=== PATIENT | male | born 1980 | race Caucasian/White ===

== ENCOUNTER 2025-07-27 07:33 | Inpatient (IN) | payer BC ==
[2025-07-27] VITALS (10 sets, daily range): BP systolic 113–133; BP diastolic 76–88; PULSE 95–102; RESP 18–22; O2SAT 95–100
[~2025-07-27] VITALS: Ht 180.3 cm; Wt 102.2 kg
--- NOTE | 2025-07-27 07:54 | Physician Documentation ---
History of Present Illness ~ Chief Complaint: ALOC Stated Complaint: ALTERED Time Seen by MD: 07:48 HPI History, review of systems, physical examination are limited secondary to patient's clinical condition. This is a 45-year-old gentleman with a known reported medical history per EMS, presents for evaluation of altered mental status starting this morning. Supposedly has ingrown hair in his groin for which he has been treated by [facility] with the Bactrim. The gentleman is oriented to his name only. He denies any pain at this time. I do not believe that he has a very reliable historian. Social history is unknown Medication Reconciliation Allergies: Coded Allergies: No Known Allergies (Unverified , 07/27/25) Review of Systems ROS Limited as above Physical Exam Vital Signs: Temperature: 96.0, Source: Axillary, Heart Rate: 116, Respiratory Rate: 24, BP: 142/100, Pulse Oximetry: 99, Weight: 102.200 Oxygen Flow Rate: 0 Physical Exam GENERAL: Awake, alert, oriented, GCS 15, no apparent distress, ill appearing, answers questions in a very limited fashion, follows commands with a extensive redirection. Diaphoretic. Examined in bed seven. HEENT: Atraumatic, normocephalic, pupils equal, extraocular muscles intact, sclerae anicteric, mucus membranes moist, oropharynx is clear, no stridor. NECK: supple, full active range of motion, trachea midline, no thyromegaly, no lymphadenopathy, no JVD. CARDIOVASCULAR: Tachycardic and regular rate/rhythm, no murmurs/gallops/rubs, Pulses are 2+ in all extremities and symmetric. Capillary refill less than 2 seconds. PULMONARY: Nonlabored, good air movement ,no respiratory distress, speaking in full sentences, clear to auscultation bilaterally, no wheezing, no ronchi, no rales, no accessory muscle use. GASTROINTESTINAL: Soft, non-tender, non-distended, normal active bowel sounds, no organomegaly, no pulsatile masses, no CVA tenderness. NEUROLOGIC: Lucid with normal mental status. Normal facial symmetry. Moves all extremities symmetrically and with purpose. No truncal ataxia. Speech is fluid without evidence of dysarthria or aphasia, no focal deficits appreciated. MUSCULOSKELETAL: There is full range of motion of all extremities. There is no joint pain or joint swelling or joint erythema. There is no muscle pain or tenderness or swelling. EXTREMITIES: warm, well-perfused, no cyanosis, no clubbing, no edema, no acute deformities. Skin: warm, dry, no rashes or lesions, no jaundice, no petechiae orpurpura. No ecchymosis. PSYCHIATRIC: Unable to assess Focused exam: [Patient presented incontinent of stool] after cleaning up the stool in his groin, the groin was examined. It is significant erythema, induration in his right groin, involving the scrotum. There is approximately 1.2 cm skin defect just at the base of the scrotum that is draining brown purulence. It is tender to palpation. Progress Results/Orders Results/Orders Orders - BULMARO PADGETT DO Cbc/Diff (07/27/25 07:44) Culture Blood (07/27/25 07:44) Chest,Single View (07/27/25 07:44) Monitor (07/27/25 07:44) Oxygen (07/27/25 07:44) Saline Lock (07/27/25 07:44) Ct Head (07/27/25 09:50) Cult (Aer) Routine C&S+Gram St (07/27/25 08:12) Cult Urine + [place] [facility] (07/27/25 08:37) Man Diff (07/27/25 08:45) Ct Chest Abdomen Pelvis Iv Con (07/27/25 09:52) Pathology Review (07/27/25 08:45) Abg (Arterial Blood Gas) (07/27/25 ) * Undefined Nursing Orders* ONCE (07/27/25 10:01) * Blood Glucose Assessment * Q1H (07/27/25 10:01) CMP (07/28/25 10:01) CMP (07/29/25 10:01) CMP (07/30/25 10:01) CMP (07/31/25 10:01) CMP (08/01/25 10:01) CMP (08/02/25 10:01) PHOS (07/27/25 18:05) PHOS (07/27/25 22:05) PHOS (07/28/25 02:05) PHOS (07/28/25 06:05) PHOS (07/28/25 10:05) PHOS (07/28/25 14:05) PHOS (07/28/25 18:05) PHOS (07/28/25 22:05) PHOS (07/29/25 02:05) PHOS (07/29/25 06:05) PHOS (07/29/25 10:05) PHOS (07/29/25 14:05) PHOS (07/29/25 18:05) PHOS (07/29/25 22:05) PHOS (07/30/25 02:05) PHOS (07/30/25 06:05) PHOS (07/30/25 10:05) PHOS (07/30/25 14:05) PHOS (07/30/25 18:05) PHOS (07/30/25 22:05) PHOS (07/31/25 02:05) PHOS (07/31/25 06:05) PHOS (07/31/25 10:05) PHOS (07/31/25 14:05) PHOS (07/31/25 18:05) PHOS (07/31/25 22:05) PHOS (08/01/25 02:05) PHOS (08/01/25 06:05) PHOS (08/01/25 10:05) PHOS (08/01/25 14:05) PHOS (08/01/25 18:05) PHOS (08/01/25 22:05) PHOS (08/02/25 02:05) PHOS (08/02/25 06:05) PHOS (08/02/25 10:05) PHOS (08/02/25 14:05) PHOS (08/02/25 18:05) PHOS (08/02/25 22:05) PHOS (08/03/25 02:05) PHOS (08/03/25 06:05) PHOS (08/03/25 10:05) PHOS (08/03/25 14:05) PHOS (08/03/25 18:05) PHOS (08/03/25 22:05) PHOS (08/04/25 02:05) PHOS (08/04/25 06:05) PHOS (08/04/25 10:05) PHOS (08/04/25 14:05) K (07/27/25 18:05) K (07/27/25 22:05) K (07/28/25 02:05) K (07/28/25 06:05) K (07/28/25 10:05) K (07/28/25 14:05) K (07/28/25 18:05) K (07/28/25 22:05) K (07/29/25 02:05) K (07/29/25 06:05) K (07/29/25 10:05) K (07/29/25 14:05) K (07/29/25 18:05) K (07/29/25 22:05) K (07/30/25 02:05) K (07/30/25 06:05) K (07/30/25 10:05) K (07/30/25 14:05) K (07/30/25 18:05) K (07/30/25 22:05) K (07/31/25 02:05) K (07/31/25 06:05) K (07/31/25 10:05) K (07/31/25 14:05) K (07/31/25 18:05) K (07/31/25 22:05) K (08/01/25 02:05) K (08/01/25 06:05) K (08/01/25 10:05) K (08/01/25 14:05) K (08/01/25 18:05) K (08/01/25 22:05) K (08/02/25 02:05) K (08/02/25 06:05) K (08/02/25 10:05) K (08/02/25 14:05) K (08/02/25 18:05) K (08/02/25 22:05) K (08/03/25 02:05) K (08/03/25 06:05) K (08/03/25 10:05) K (08/03/25 14:05) K (08/03/25 18:05) K (08/03/25 22:05) K (08/04/25 02:05) K (08/04/25 06:05) K (08/04/25 10:05) K (08/04/25 14:05) K (08/04/25 18:05) K (08/04/25 22:05) K (08/05/25 02:05) K (08/05/25 06:05) K (08/05/25 10:05) K (08/05/25 14:05) K (08/05/25 18:05) K (08/05/25 22:05) K (08/06/25 02:05) K (08/06/25 06:05) K (08/06/25 10:05) K (08/06/25 14:05) K (08/06/25 18:05) K (08/06/25 22:05) K (08/07/25 02:05) K (08/07/25 06:05) K (08/07/25 10:05) K (08/07/25 14:05) K (08/07/25 18:05) K (08/07/25 22:05) K (08/08/25 02:05) K (08/08/25 06:05) K (08/08/25 10:05) K (08/08/25 14:05) K (08/08/25 18:05) K (08/08/25 22:05) K (08/09/25 02:05) K (08/09/25 06:05) K (08/09/25 10:05) K (08/09/25 14:05) K (08/09/25 18:05) K (08/09/25 22:05) K (08/10/25 02:05) K (08/10/25 06:05) K (08/10/25 10:05) K (08/10/25 14:05) K (08/10/25 18:05) K (08/10/25 22:05) K (08/11/25 02:05) K (08/11/25 06:05) K (08/11/25 10:05) K (08/11/25 14:05) K (08/11/25 18:05) K (08/11/25 22:05) K (08/12/25 02:05) K (08/12/25 06:05) K (08/12/25 10:05) K (08/12/25 14:05) K (08/12/25 18:05) MG (07/27/25 18:05) MG (07/27/25 22:05) MG (07/28/25 02:05) MG (07/28/25 06:05) MG (07/28/25 10:05) MG (07/28/25 14:05) MG (07/28/25 18:05) MG (07/28/25 22:05) MG (07/29/25 02:05) MG (07/29/25 06:05) MG (07/29/25 10:05) MG (07/29/25 14:05) MG (07/29/25 18:05) MG (07/29/25 22:05) MG (07/30/25 02:05) MG (07/30/25 06:05) MG (07/30/25 10:05) MG (07/30/25 14:05) MG (07/30/25 18:05) MG (07/30/25 22:05) MG (07/31/25 02:05) MG (07/31/25 06:05) MG (07/31/25 10:05) MG (07/31/25 14:05) MG (07/31/25 18:05) MG (07/31/25 22:05) MG (08/01/25 02:05) MG (08/01/25 06:05) MG (08/01/25 10:05) MG (08/01/25 14:05) MG (08/01/25 18:05) MG (08/01/25 22:05) MG (08/02/25 02:05) MG (08/02/25 06:05) MG (08/02/25 10:05) MG (08/02/25 14:05) MG (08/02/25 18:05) MG (08/02/25 22:05) MG (08/03/25 02:05) MG (08/03/25 06:05) MG (08/03/25 10:05) MG (08/03/25 14:05) MG (08/03/25 18:05) MG (08/03/25 22:05) MG (08/04/25 02:05) MG (08/04/25 06:05) MG (08/04/25 10:05) MG (08/04/25 14:05) Ringers Solution, Lacted (Lactated Ringe (07/27/25 10:05) Ringers Solution, Lacted (Lactated Ringe (07/27/25 10:05) Dextrose 5%-1/2 Normal Saline (Dextrose (07/27/25 10:05) Insulin Reg/Ns 100units/100ml (Myxredlin (07/27/25 10:05) Dextrose 50%-Water (Dextrose 50%-Water S (07/27/25 10:05) * Undefined Nursing Orders* DAILY (07/27/25 10:01) Potassium Cl 40meq/1/2ns 520ml (Potassiu (07/27/25 10:05) Potassium Cl 40meq/270ml Bag (Potassium (07/27/25 10:05) Magnesium Sulf-Water 2g/50ml (Magnesium (07/27/25 10:05) Sodium Phosphate Inj. (Sodium Phosphate (07/27/25 10:05) Sodium Phosphate Inj. (Sodium Phosphate (07/27/25 10:05) * (A) Ruano- Protocol * Q12H@07,19 (07/27/25 10:22) Vancomycin/H2o 1.75g/350ml Pb (Vancomyci (07/27/25 11:00) Hospitalist Icu Consultation (07/27/25 11:08) Fill Out Med Reconciliation (07/27/25 11:08) MG (07/27/25 14:40) PHOS (07/27/25 14:40) Hs Troponin I W Calculations (07/27/25 14:40) Completed Orders - BULMARO PADGETT DO Chest,Single View (07/27/25 07:44) Procalcitonin (07/27/25 07:44) Lacticsepsis (07/27/25 07:44) Electrocardiogram (07/27/25 ) ESR (07/27/25 07:48) C-Reactive Protein (07/27/25 07:48) Normal Saline 1000ml (0.9% Sodium Chlori (07/27/25 07:50) Ct Head (07/27/25 09:50) CMP (07/27/25 07:48) Hs Troponin I W Calculations (07/27/25 07:48) Ethanol (07/27/25 07:48) Drug Screen, Urine (07/27/25 07:48) Piperacillin/Tazo 4.5gm/100ml (Zosyn 4.5 (07/27/25 08:15) Normal Saline 1000ml (0.9% Sodium Chlori (07/27/25 08:15) Iohexol 300mg/Ml 100ml Inj. (Omnipaque-3 (07/27/25 08:16) Ua W/Microscopic, Cult If Ind (07/27/25 08:13) Ct Chest Abdomen Pelvis Iv Con (07/27/25 09:52) Vancomycin*Pharmacy To Dose* (Vancomycin (07/27/25 10:05) PHOS (07/27/25 14:05) K (07/27/25 14:05) MG (07/27/25 14:05) Lactic,2hr (07/27/25 10:26) Medications Received in ER Medications (Trade) Dose Ordered Sig/Sean Route PRN Reason Start Time Stop Time Status Last Admin Dose Admin (0.9% sodium chloride (NS) 1000ml IV soln) 1,000 ml ONCE ONCE IVB 07/27/25 07:50 07/27/25 07:51 DC 07/27/25 07:57 1,000 ML Piperacillin/ Tazobactam/ Dextrose 100 ml @ 100 mls/hr ONCE ONCE IV 07/27/25 08:15 07/27/25 09:14 DC 07/27/25 08:50 100 MLS/HR (0.9% sodium chloride (NS) 1000ml IV soln) 1,000 ml ONCE ONCE IVB 07/27/25 08:15 07/27/25 08:17 DC 07/27/25 08:41 1,000 ML Lactated Ringer's 1,000 ml @ 1,000 mls/hr Q1H IV 07/27/25 10:05 07/27/25 15:04 07/27/25 10:40 1,000 MLS/HR Insulin Human Regular 100 ml @ 0 mls/hr Q0M IV 07/27/25 10:05 07/27/25 10:39 10 MLS/HR Vancomycin HCl 350 ml @ 117 mls/hr ONCE ONCE IV 07/27/25 11:00 07/27/25 13:59 07/27/25 11:31 117 MLS/HR Vital Signs 07/27/25 07/27/25 07/27/25 07/27/25 07:38 07:46 07:51 08:52 Temp 96.0 Pulse 116 114 109 Resp 24 24 24 17 B/P (MAP) 142/100 167/105 (125) 140/95 (110) Pulse Ox 99 99 100 O2 Flow Rate 0 0 07/27/25 07/27/25 07/27/25 10:02 10:57 11:45 Pulse 111 96 105 Resp 22 22 22 B/P (MAP) 140/89 (106) 143/84 (103) 132/84 (100) Pulse Ox 99 98 99 O2 Flow Rate 0 0 0 Laboratory Tests Test 07/27/25 08:13 07/27/25 08:45 07/27/25 10:22 07/27/25 10:41 Urine Specimen Description Straight cath Urine Color Yellow Urine Clarity Clear Urine pH 6.0 Urine Specific [place] >=1.030 Urine Protein 30 H Urine Glucose (UA) >=1000 H Urine Ketones >=80 Urine Occult Blood Moderate H Urine Nitrite Negative Urine Bilirubin Small Urine Urobilinogen 0.2 Urine Leukocyte Esterase Negative Urine RBC 3-10 Urine WBC 5-10 H Urine Squamous Epithelial Cells None seen Urine Amorphous Urates 1+ Urine Bacteria Few Urine Fine Granular Casts 0-3 Urine Culture Indicated Indicated Volume Urine Centrifuged 10 ml Urine Comment Urine Opiates Screen Negative Urine Methadone Screen Negative Urine Fentanyl Screen Negative Urine Barbiturates Screen Negative Urine Phencyclidine Screen Negative Urine Amphetamines Screen Negative Urine Benzodiazepines Screen Negative Urine Cocaine Screen Negative Urine Cannabinoids Screen Negative Drug Screen Comment White Blood Count 37.0 *H Red Blood Count 4.85 Hemoglobin 15.0 Hematocrit 47.8 Mean Corpuscular Volume 98.6 H Mean Corpuscular Hemoglobin 31.0 Mean Corpuscular Hemoglobin Concent 31.5 L Red Cell Distribution Width 13.8 Platelet Count 509 H Mean Platelet Volume 8.4 Neutrophils (%) (Auto) 81.9 H Lymphocytes (%) (Auto) 4.9 L Monocytes (%) (Auto) 12.0 Eosinophils (%) (Auto) 0.1 Basophils (%) (Auto) 1.1 H Neutrophils # (Auto) 30.3 H Lymphocytes # (Auto) 1.8 Monocytes # (Auto) 4.5 H Eosinophils # (Auto) 0.0 Basophils # (Auto) 0.4 H CBC Comment Differential Total Cells Counted 100 Neutrophils % (Manual) 66.0 Band Neutrophils % 8.0 Lymphocytes % (Manual) 8.0 L Monocytes % (Manual) 7.0 Metamyelocytes % 11.0 H Platelet Estimate Increased Red Blood Cell Morphology Perf Basophilic Stippling Macrocytosis 1+ Erythrocyte Sedimentation Rate 37 H Sodium Level 125 L Potassium Level 4.4 5.3 H Chloride Level 90 L Carbon Dioxide Level < 5 *L Anion Gap 30 H Blood Urea Nitrogen 29 H Creatinine 1.94 H Estimated GFR/1.73 m2 37 BUN/Creatinine Ratio 14.9 Glucose Level 722 *H Lactic Acid Level 3.7 H 2.4 H Calcium Level 9.5 Total Bilirubin 0.5 Aspartate Amino Transf (AST/SGOT) 19 Alanine Aminotransferase (ALT/SGPT) 14 Alkaline Phosphatase 159 H Troponin I High Sensitivity 16 C-Reactive Protein 3.42 H Total Protein 7.0 Albumin 2.8 L Globulin 4.2 Albumin/Globulin Ratio 0.7 L Procalcitonin 1.43 H Chemistry Comments Ethyl Alcohol Level < 10 Blood Gas Specimen Type Arterial Blood Gas Puncture Site Rr O2 Saturation 97.6 Arterial Blood pH (Temp corrected) 6.905 *L Arterial Blood pCO2 (Temp correct) 12.1 *L Arterial Blood pO2 (Temp corrected) 120.5 H Arterial Blood PO2/FiO2 Ratio 6.03 Arterial Blood HCO3 2.4 L Arterial Blood Base Excess -29.4 L Arterial Blood Oxyhemoglobin 97.1 Arterial Blood Carboxyhemoglobin 0.3 L Arterial Blood Methemoglobin 0.2 Arterial Blood Deoxyhemoglobin 2.4 Ralph Test Positive Blood Gas Hemoglobin 14.9 Blood Gas Temperature 36.0 Blood Gas Modality Room air FiO2 21.0 Blood Gas Critical Value Called To Dinh mustafa rn Phosphorus Level 6.0 H Magnesium Level 2.1 Test 07/27/25 11:39 Glucometer > 600 *H Microbiology Date/Time Source Procedure Growth Status 07/27/25 08:37 Urine Straight Cath Urine Culture - Preliminary Culture received. Resulted 07/27/25 08:14 Blood Arm Right Blood Culture - Preliminary NEGATIVE (LESS THAN 24 HOURS) Resulted EKG/XRAY/CT/US/VASC/MRI EKG : Additional Comment EKG was obtained and interpreted by myself shows sinus tachycardic, rate of 113, normal ME interval, borderline QRS of 105, QTC 475, borderline normal. No STEMI. Medical Decision Making Findings Facility Status: ED Holds, RME process The plan was discussed with the patient, who demonstrates clear understanding of the plan and is in agreement with the plan unless otherwise noted in the chart. All questions have been answered, all concerns were addressed unless otherwise documented. I was available throughout their ED stay for frequent reassessment and questions . Differential Diagnoses (considered and possible or likely): [Hypoglycemia, electrolyte derangement, urinary tract infection, pneumonia, occult bacteremia, cellulitis leading to an overwhelming infection and altered mental status, alcohol intoxication, drug toxidrome, thyroid disorder had also been considerably less likely. Less likely intracranial process such as bleed or tumor.] ??Differential Diagnoses (considered and unlikely, not requiring evaluation currently): [No evidence of traumatic injury] MDM Data Please see [facility] for the following: Independent Historians and external Records Review. Historian: Very limited information from patient Independent Historians: ?[EMS, eventually ] Medication Management: [Reviewed medication list] Social History and determinants: [Reviewed] Please see the body of the note for the following: Any independent interpretations of ECG, imaging studies. All vitals signs/haemodynamics, ordered tests were independently reviewed and interpreted by myself. Nursing triage complaint and vitals reviewed, additional nursing notes were reviewed as available and I agree unless otherwise noted or documented in contradiction in the chart Vital Signs: Independently reviewed Labs: Independently interpreted Imaging: Independently interpreted Old Medical Records: Independently reviewed, see HPI for relevant summary and information Pulse Oximetry: [97%] interpreted as [normal on room air] by me [Field Operations Technician: Tachycardic Rate, Regular rhythm, no ectopy, sinus tachycardia. reviewed and interpreted by me] Additionally notably showing: [Hemodynamics reviewed. The patient is not febrile, persistently tachycardic, tachypneic with Kussmaul respirations. No evidence of hypotension. No evidence of hypoxia. CBC shows marked leukocytosis of 37, 82% neutrophilic predominance. No anemia. Elevated platelets. 8% bands noted. ESR is elevated at 37. Chemistry shows pseudohyponatremia of 125, glucose of 722, bicarb less than five and a gap of 30. There is evidence of MILAN with a creatinine of 1.94. CRP is significantly elevated. Procalcitonin is elevated in the septic range. Lactic acid is elevated at 3.7. Lactic acid had improved. Phosphorus is elevated. Potassium is appropriate for DKA treatment at 5.3. Urine drug screen is negative. E thanol is negative. UA is questionable positive for UTI. Chest x-ray was obtained and showing no acute cardiopulmonary disease. CT head was obtained showing no acute intracranial abnormality. CT of the chest, abdomen and pelvis was obtained showing no acute intrathoracic or intra-abdominal abnormality, there is right scrotal cellulitis without evidence of gangrene.] Tests considered but not ordered include: [Not applicable] Social Determinants of Health Impact: Patient was [place] [facility] [place] to healthcare due to below par ratio of patient to medical providers. 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 See EMR for details Consideration for Hospitalization/Escalation/Deescalation of Care: Admission for critical care management as necessary given his new onset diabetes, severe diabetic ketoacidosis, with a scrotal cellulitis as a cause of precipitation. ?ED Course:?[No significant clinical improvement, no clinical deterioration.] ?Shared decision making:?[] Code status:?FULL Please see the full Electronic Medical Record for full details of nursing documentation, medications list, other records of complete past medical history and conditions, vital signs, laboratory studies, and any radiologic study interp retations by radiologists. Portions of this note were completed using [employer] dictation software and as a result there may exist minor errors in spelling. I have reviewed elements of past family and social history and agree as included in note. Departure Disposition: 09 ADMITTED INPATIENT Admitted to Inpatient Unit: to qa developer Impression: Primary Impression: Diabetic ketoacidosis Additional Impressions: Altered mental status Acute kidney injury Cellulitis of scrotum Referrals: NO PRIMARY CARE PROVIDER (PCP) Critical Care Note Critical Care Note CRITICAL CARE TIME: [ 75] minutes Treatments/Evaluations: Close monitoring and treatment of unstable vital signs, cardiorespiratory, and neurologic status, while maintaining tight balance of fluid, respiratory, and cardiac interventions. This time includes discussing the case with the patient and the patients family. This time does not include all procedures stated elsewhere in this record. This time also includes reviewing old records, labs and radiological studies. This time includes examining and re- examining the patient. Additionally, this time also includes arranging care with admitting and consulting physicians. Signature Scribe Signature: No scribe Attestation: This note accurately reflects clinical decisions, work performed by myself, Bulmaro Padgett, BULMARO DAVIDSON DO Jul 27, 2025 07:54
[2025-07-27] MEDS: normal saline 1000ML IV soln IVB ONE ×2 (07:57→08:41)
[2025-07-27] MEDS ORDERED: iohexol 300mg/ml 100ml inj. ONE (08:16)
[2025-07-27 08:30] LABS: LEUKOCYTE ESTERASE ,URINE NEGATIVE (Neg); NITRITES, URINE NEGATIVE (Neg); OCCULT BLOOD,URINE MODERATE (Neg)
[2025-07-27 08:34] LABS: UA COLLECTION TYPE STRAIGHT CATH
--- NOTE | 2025-07-27 08:35 | RADIOLOGY REPORT ---
CHEST RADIOGRAPH Indication: Suspected infection Technique: Single frontal view of the chest was obtained COMPARISON: None FINDINGS: Lines and Tubes: None Lungs: Clear Pleura: No effusion. No pneumothorax. Cardiomediastinal contours: Unremarkable Bones: Unremarkable IMPRESSION: No acute disease.
[2025-07-27 08:36] LABS: AMORPHOUS URATES 1+; SQUAMOUS EPITHELIAL CELL,UR NONE SEEN /LPF (FEW)
[2025-07-27 08:37] LABS: FINE GRANULAR CAST 0-3 /LPF (NEGATIVE); URINE AMPHETAMINE SCREEN NEGATIVE (Neg); URINE BARBITUATE SCREEN NEGATIVE (Neg); URINE BENZODIAZEPINES SCREEN NEGATIVE (Neg); URINE CANNABINOID SCREEN NEGATIVE (Neg); URINE COCAINE SCREEN NEGATIVE (Neg); URINE METHADONE SCREEN NEGATIVE (Neg); URINE OPIATE SCREEN NEGATIVE (Neg); URINE PHENCYCLIDINE SCREEN NEGATIVE (Neg)
[2025-07-27] MEDS: piperacillin/tazo 4.5gm/100ml 100 ML IV ONE (08:50)
[2025-07-27 09:09] LABS: MEAN PLATELET VOLUME 8.4 FL (7.4-10.4); RED CELL DISTRIBUTION WIDTH 13.8 % (11.5-14.5)
[2025-07-27 09:31] LABS: CREATININE 1.94 MG/DL (0.60-1.10); ETHANOL < 10 MG/DL (<10); eCRCL 51 ML/MIN; eGFR 37 ML/MIN
[2025-07-27 09:42] LABS: TOTAL CARBON DIOXIDE < 5 MMOL/L (24-32)
[2025-07-27 09:46] LABS: BANDS% (MANUAL) 8.0 % (0-10); LYMPHOCYTES % (MANUAL) 8.0 % (21-51); METAMYLEOCYTES% (MANUAL) 11.0 % (0-0); MONOCYTES % (MANUAL) 7.0 % (2-12); NEUTROPHILS % (MANUAL) 66.0 % (42-75); PLATELET ESTIMATE INCREASED
[2025-07-27] MEDS ORDERED: potassium Cl 40MEQ/270ML bag 270 ML IV PRN (10:05)
[2025-07-27] MEDS ORDERED: dextrose 50%-water 50ml dispensing syringe IV PRN (10:05)
[2025-07-27] MEDS ORDERED: sodium phosphate inj. 15 MMOL in dextrose 5%-water 250 ML IV PRN (10:05)
[2025-07-27] MEDS: ringers solution, lacted 1,000 ML IV SCH ×3 (10:05→12:05)
--- NOTE | 2025-07-27 10:06 | RADIOLOGY REPORT ---
EXAM: CT CT HEAD INDICATION: aloc TECHNIQUE: CT of the head without intravenous contrast. Coronal and sagittal reformatted images are s ubmitted. Radiation Dose : 1. Head: CT Dose: CTDI volume is 66.0 mGy. Dose-length product is 1275.2 mGy*cm The dose indicators for CT are the volume Computed Tomography (CT) Dose Index (CTDIvol) and the Dose Length Product (DLP), and are measured in units of mGy and mGy-cm, respectively. These indicators are not patient dose, but values generated from the CT scanner acquisition factors. The report includes radiation exposure data for exposures received during this examination. All CT scans at this medical facility are performed using dose modulation techniques as appropriate to a performed exam including the following: Automated exposure control was utilized; adjustment of the MA and/or KV according to patient size; and use of iterative reconstruction technique. COMPARISON: None FINDINGS: There is no evidence of acute intracranial hemorrhage, extra-axial collection, mass effect, midline s hift, herniation or hydrocephalus. The ventricles, sulci and cisterns are age appropriate. The han-white differentiation is intact. The visualized paranasal sinuses and mastoid air cells are clear. No depressed calvarial fracture. The surrounding soft tissues are unremarkable. IMPRESSION: 1. No evidence of acute intracranial abnormality.
[2025-07-27 10:28] LABS: ABG BASE EXCESS -29.4 mmol/L (-2.0-3.0); ABG HCO3 2.4 mmol/L (21.0-28.0); ABG OXYGEN SATURATION 97.6 % (94.0-98.0); ABG PCO2 (T) 12.1 mmHg (35.0-48.0); ABG PH (T) 6.905 (7.350-7.450); ABG PO2 (T) 120.5 mmHg (83.0-108.0); ALLEN'S TEST POSITIVE; FCOHb 0.3 % (0.5-1.5); FHHb 2.4 % (0.0-5.0); FIO2 21.0 mmHg/%; FMetHb 0.2 % (0.0-1.5); FO2Hb 97.1 % (94.0-98.0); MODE ROOM AIR; PATIENT TEMPERATURE 36.0; TOTAL HEMOGLOBIN 14.9 G/dl (13.5-17.5)
[2025-07-27] MEDS: Insulin Reg/NS 100units/100mL 100 ML IV SCH ×2 (10:39→18:43)
--- NOTE | 2025-07-27 10:55 | RADIOLOGY REPORT ---
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 Sagittal and coronal reconstructions are provided. ORAL CONTRAST: None. ADDITIONAL IMAGES / REFORMATS: None All CT scans at this medical facility are performed using dose modulation techniques as appropriate t o a performed exam including the following: Automated exposure control was utilized; adjustment of th e MA and/or KV according to patient size; and use of iterative reconstruction technique. FINDINGS: CHEST: BONES: Scattered degenerative changes are noted in the visualized osseous structures. CHEST WALL: Normal. SOFT TISSUES:Normal. MEDIASTINUM: Normal. HEART: Normal. VESSELS: Normal. LYMPH NODES: Normal. PLEURA: Normal. AIRWAYS: Normal. LUNG: Normal. ABDOMEN AND PELVIS: BONES: Scattered degenerative changes are noted in the visualized osseous structures. LIVER: Normal. GALLBLADDER AND BILIARY TREE: No calcified gallstones. Normal caliber wall. No intra- or extrahepatic biliary ductal dilation. PANCREAS: Normal. SPLEEN: Normal. BOWEL: Mild distal esophagitis. No bowel dilation.Normal appendix. ADRENALS: Normal. KIDNEYS AND URETER: Normal. BLADDER: Normal. REPRODUCTIVE ORGANS: Normal. LYMPH NODES:No lymphadenopathy. PERITONEUM: No ascites or free air. No other fluid collection. VESSELS: Normal RETROPERITONEUM: Normal. ABDOMINAL WALL: Right scrotal skin thickening and edema extending into perineum could be cellulitis. No subcutaneous emphysema seen to suggest for gangrene. IMPRESSION: No acute intrathoracic or intraabdominal abnormality. Right scrotal skin thickening and edema extending into perineum could be cellulitis. No subcutaneous emphysema seen to suggest for gangrene.
[2025-07-27 11:12] LABS: PHOSPHORUS 6.0 MG/DL (2.3-4.5)
--- NOTE | 2025-07-27 11:16 | ELECTROCARDIOGRAPH REPORT ---
[facility] Test Date: 2025-07-27 Test Time: 07:44:14 Pat Name: KALPANA DOMINGUEZ Department: EMERGENCY ROOM Room: Gender: M Director Of Cloud Services: : 1980 Requested By: MARYLOU FARR Order Number: [id number] Reading MD: Measurements Intervals [place] Rate: 113 P: 25 WV: 143 QRS: -4 QRSD: 105 T: 17 QT: 346 QTc: 475 Interpretive Statements Sinus tachycardia Probable left atrial enlargement Low voltage, precordial leads Consider anterior infarct Minimal ST elevation, inferior leads Please click the below link to view image of tracing.
[2025-07-27] MEDS: VANCOMYCIN 1.75GM/WATER FOR INJ (PEG) 350 ML IVPB IV ONE (11:31)
[2025-07-27] MEDS ORDERED: magnesium hydroxide 30ml (MOM) UD suspension PO PRN (12:05)
[2025-07-27] MEDS ORDERED: VANCOMYCIN/H2O 1.5g/300mL PB 300 ML IV ONE (12:10)
[2025-07-27] MEDS ORDERED: NO HOME MEDS (12:18)
[2025-07-27] MEDS: LidoCAINE 2% Topical Jelly 11mL syringe (UROJET) TOP ONE (12:21)
[2025-07-27] MEDS: ringers solution, lacted 1,000 ML IV ONE ×6 (12:26→18:15)
[2025-07-27] MEDS: sodium bicarbonate (8.4%) 1 mEq/ml syringe IV ONE (12:47)
--- NOTE | 2025-07-27 13:31 | HISTORY AND PHYSICAL-Residence ---
History & Physical Providers to CC Resident Creating Document: JOSIAS COULTER CC: JULIAN ARAUJO MD ~ History of Present Illness Reason for Admit\Complaint: ALOC History of Present Illness Patient is a 45 y/o male with no past medical history who was brought to the ED by EMS due to altered level of consciousness. Per , patient initially presented with a lesion in his right scrotal area last Thursday which she described as a ingrown hair, she reports that in the following days, the lesion increased in size and became red and tender. She believes that patient drained it himself. By Thursday, the lesion had ulcerated and had significant purulent discharge, and patient also started reporting some difficulty breathing. On Thursday of this week, patient was seen by a Telemedicine physician who prescribed oral Bactrim. She reports that symptoms did not improved and this morning she found him significantly confused and drowsy, reason why she decided to call 911. In ED patient was found to have a significantly elevated white count as well as blood glucose >600 as well as other electrolyte abnormalities consistent with DKA, reason why ICU was consulted. Allergies: Coded Allergies: No Known Allergies (Unverified , 07/27/25) Home Medications Home Medications Active Reported No Home Medications (Home Med List) Each Past Medical History Past Medical History None Past Surgical History Surgical History Comment None Family History Family History: FH: myocardial infarction MOTHER Past Social History Smoking: Non-Smoker Alcohol Use: Occasionally Drug Use: None Lives with: Spouse Lives In: Home Occupation: employed ROS ROS Unable to obtain due to altered mental status Exam Vitals: Vital Signs Date Time Temp Pulse Resp B/P (MAP) Pulse Ox O2 Delivery O2 Flow Rate FiO2 07/27/25 12:22 108 20 133/96 (108) 99 0 07/27/25 07:38 96.0 General: General: Drowsy, wakes up and is able to answer questions but not fully coherent HEENT: No pallor present, no icterus, moist mucous membranes Neck: No masses and tenderness Resp: Shallow breathing. Lungs clear to auscultation bilaterally. Chest: Normal expansion Cardiovascular: Regular Rate and rhythm, normal S1 and S2 without murmur, rub or gallop Abdomen: Soft and nontender, no organomegaly, no guarding and rigidity, bowel sounds present Male genitalia: He has a 3 x 2 ulcer in the right side of his scrotal area. Purulent discharge was observed Neuro: Unable to follow commands properly, oriented to self and place but no to time Extremities: No cyanosis,clubbing or edema Skin: Warm and Dry. No lesions Psych: Normal affect Diagnostic Data Last Recorded Lab Results: 07/27/25 0845 07/27/25 1041 Advance Care Planning Advanced Care plannin - 30 Minutes Additional Plan Patient is a 45 y/o male with no past medical history who was brought to the ED by EMS due to altered level of consciousness. Admitted for evaluation and management of sepsis and DKA ID: Severe sepsis 2/2 scrotal abscess No signs of shock at this time. 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 Continue medical management Josias Beauchamp MD Internal Medicine Resident PGY-2 Date of Service: Jul 27, 2025 Billing Provider: JULIAN ARAUJO MD, LEONARDO LUIS Jul 27, 2025 13:31
[2025-07-27 14:33] LABS: OSMOLALITY 324.0 MOSM/K (280-300)
[2025-07-27 17:10] LABS: PHOSPHORUS 1.2 MG/DL (2.3-4.5)
[2025-07-27] MEDS: ceFAZolin/D5W- 1GM premix 50 ML IV SCH (17:49)
[2025-07-27] MEDS: heparin, porcine 5000 units/ml vial SQ SCH (18:04)
[2025-07-27 18:09] LABS: CREATININE 1.66 MG/DL (0.60-1.10); eCRCL 59 ML/MIN; eGFR 45 ML/MIN
[2025-07-27 18:19] LABS: TOTAL CARBON DIOXIDE 6.8 MMOL/L (24-32)
[2025-07-27] MEDS: sodium phosphate inj. 30 MMOL in dextrose 5%-water 250 ML IV PRN (18:26)
[2025-07-27] MEDS ORDERED: Insulin Reg/NS 100units/100mL 100 ML IV SCH (18:50)
[2025-07-27] MEDS: potassium Cl 40MEQ/1/2NS 520ml 520 ML IV PRN (19:32)
[2025-07-27] MEDS: famotidine/PF 10 mg/ml inj IV SCH (20:46)
[2025-07-27 21:21] LABS: CREATININE 1.83 MG/DL (0.60-1.10); eCRCL 54 ML/MIN; eGFR 40 ML/MIN
[2025-07-27 21:23] LABS: PHOSPHORUS 1.0 MG/DL (2.3-4.5); TOTAL CARBON DIOXIDE 15.0 MMOL/L (24-32)
[2025-07-27 22:49] LABS: CREATININE 1.61 MG/DL (0.60-1.10); PHOSPHORUS 1.6 MG/DL (2.3-4.5); TOTAL CARBON DIOXIDE 16.0 MMOL/L (24-32); eCRCL 61 ML/MIN; eGFR 46 ML/MIN
[2025-07-27] MEDS: potassium Cl 40MEQ/1/2NS 520ml 520 ML IV ONE (23:53)
[2025-07-28] VITALS (21 sets, daily range): BP systolic 111–139; BP diastolic 62–88; PULSE 79–101; RESP 12–23; TEMP 97.5–97.6; O2SAT 94–99
[2025-07-28 04:18] LABS: MEAN PLATELET VOLUME 7.6 FL (7.4-10.4)
[2025-07-28 04:20] LABS: RED CELL DISTRIBUTION WIDTH 12.8 % (11.5-14.5)
[2025-07-28 04:39] LABS: CREATININE 1.60 MG/DL (0.60-1.10); PHOSPHORUS 2.4 MG/DL (2.3-4.5); eCRCL 61 ML/MIN; eGFR 47 ML/MIN
[2025-07-28 04:48] LABS: BANDS% (MANUAL) 24 % (0-10); LYMPHOCYTES % (MANUAL) 4 % (21-51); METAMYLEOCYTES% (MANUAL) 3 % (0-0); MONOCYTES % (MANUAL) 11 % (2-12); MYELOCYTES % (MANUAL) 1 % (0-0); NEUTROPHILS % (MANUAL) 57 % (42-75); PLATELET ESTIMATE NORMAL
[2025-07-28 05:11] LABS: TOTAL CARBON DIOXIDE 12.4 MMOL/L (24-32)
--- NOTE | 2025-07-28 06:02 | PROGRESS NOTE ---
Progress Note Dictate Providers to CC ~ Progress Note: Remains on Insulin drip Central Line/PICC still needed: N\A Ruano Indications Met/Not Met: F/C Indications Not Met Antibiotic Ordered?: Yes Subjective Subjective Comfortable Objective Vitals Vital Signs Date Time Temp Pulse Resp B/P (MAP) Pulse Ox O2 Delivery O2 Flow Rate FiO2 07/28/25 05:00 99.9 99 16 118/77 (91) 98 Room Air 07/27/25 20:00 0.0 Lab Results: 07/28/25 0404 07/28/25 0404 Objective Heart: S1-2 reg Lungs: Clear Abdomen: soft, non-tender, BS (+) Ext: No edema Problem\Assessment\Plan Additional Plan 1-DKA -Insulin drip per protocol -F/U BMP 2-Soft Tissue Infection -Continue abx -Wound care Robert Araujo CC time 35min Sepsis Screening Reassessment Date: Jul 28, 2025 JULIAN ARAUJO MD Jul 28, 2025 06:02
[2025-07-28] MEDS: ringers solution, lacted 1,000 ML IV ONE ×2 (07:00→07:01)
[2025-07-28] MEDS ORDERED: enoxaparin 40mg/0.4ml syringe SUBCUT SCH (08:00)
[2025-07-28] MEDS: magnesium sulf-water 2g/50mL 50 ML IV PRN (10:17)
[2025-07-28] MEDS ORDERED: SULF1TAB45 PO (10:37)
[2025-07-28 11:41] LABS: CREATININE 0.89 MG/DL (0.60-1.10); eCRCL 110 ML/MIN; eGFR > 90 ML/MIN
[2025-07-28 11:49] LABS: TOTAL CARBON DIOXIDE 9.2 MMOL/L (24-32)
[2025-07-28 12:44] LABS: PHOSPHORUS 0.7 MG/DL (2.3-4.5)
[2025-07-28 14:07] LABS: CREATININE 1.29 MG/DL (0.60-1.10); TOTAL CARBON DIOXIDE 19.6 MMOL/L (24-32); eCRCL 76 ML/MIN; eGFR 60 ML/MIN
[2025-07-28 14:26] LABS: PHOSPHORUS 1.1 MG/DL (2.3-4.5)
--- NOTE | 2025-07-28 14:43 | CONSULTATION REPORT - RESIDENT ---
Consult Providers to CC Resident Creating Document: GERA ALONSO RES History of Present Illness Reason for Admit\Complaint: Altered level of conscious History of Present Illness Patient is a 45 y/o male with no past medical history who was brought to the ED by EMS due to altered level of consciousness. Per , patient initially presented with a lesion in his right scrotal area last Thursday which she described as a ingrown hair, she reports that in the following days, the lesion increased in size and became red and tender. She believes that patient drained it himself. By Thursday, the lesion had ulcerated and had significant purulent discharge, and patient also started reporting some difficulty breathing. On Thursday of this week, patient was seen by a Telemedicine physician who prescribed oral Bactrim. She reports that symptoms did not improved and on morning, she found him significantly confused and drowsy, reason why she decided to call 911. In ED patient was found to have a significantly elevated white count as well as blood glucose >600 as well as other electrolyte abnormalities consistent with DKA, so he was shifted to ICU. His glucose has come down and anion gap has reduced today, reason why he was consulted with IM. He states that his pain in the right scrotal area has improved. He denies nausea, vomiting, abdominal pain, fever or chills. Allergies: Coded Allergies: No Known Allergies (Unverified , 07/27/25) Home Medications Home Medications Active Reported Ds Tab (Trimethoprim/Sulfamethoxazole) 800 Mg/160 Mg Tablet 1 Tab PO BID PT HAD 3 DOSES PRIOR TO HOSPITAL Past Medical History Past Medical History No significant past medical history Past Surgical History Surgical History Comment No surgical history Family History Family History: Family history was reviewed; no changes noted. Past Social History Social History Comment Smoking: Non-Smoker Alcohol Use: Occasionally Drug Use: None Lives with: Spouse Lives In: Home Occupation: employed ROS ROS Constitutional: No fever, chills, dizziness, weight gain or loss Eyes: No pain, erythema, discharge, blurring of vision ENT: No sore throat, epistaxis, tinnitus Cardiovascular:No chest pain, palpitations, syncope, lower extremity edema, paroxysmal nocturnal dyspnea Respiratory: No Shortness of breath and cough, No hemoptysis. Gastrointestinal: No Abdominal pain, vomiting,nausea,constipation,diarrhea, No hematemesis or melena. Musculoskeletal: No Swelling and pain in bilateral lower legs. Integumentary: No change in skin, hair, nails. No swelling, bruising, abrasions Neurologic: No weakness,No headache, neck pain, numbness or tingling of the extremities, Psychiatric: No delusions, depression, loss of interest in normal activity or change in sleep pattern, hallucinations, suicidal ideations Endocrine: No fatigue, no weakness. polydipsia, polyuria, change in appetite, heat or cold intolerance, sweating, dry skin Hematological: No bleeding, petechiae, bruising Allergies: No asthma or urticaria Exam Vitals: Vital Signs Date Time Temp Pulse Resp B/P (MAP) Pulse Ox O2 Delivery O2 Flow Rate FiO2 07/28/25 11:00 99.3 91 13 118/74 (89) 94 Room Air 07/27/25 20:00 0.0 General: Awake , alert, and oriented x4, resting comfortably in the bed, in no acute distress HEENT: Atraumatic, normocephalic, EOMI, anicteric sclera ; pink conjunctiva Neck: Trachea midline. Supple, full range of motion, no JVD Cardiac: Regular rhythm, regular rate with no murmurs all over the precordium. Respiratory: Equal breath sounds bilaterally, no tachypnea, no wheezing ,rub or rales, Chest wall is symmetric and without deformity. Gastrointestinal: Abdomen symmetric, non-distended, soft, non-tender, normal bowel sounds x4 quadrant, normoactive, no hepatosplenomegaly Male genitalia: He has a 3 x 2 erythematous ulcer in the right side of his scrotal area. No discharge was observed Musculoskeletal: No pedal edema, no cyanosis Neurological: Speech is clear, alert, and oriented x 4. No motor or sensory deficit, deep tendon reflexes normal, Cranial nerves II-XII intact. Skin: Warm and dry Psych: Normal affect Diagnostic Data Last Recorded Lab Results: 07/28/25 0404 07/28/25 1254 Additional Plan Patient is a 45 y/o male with no past medical history who was brought to the ED by EMS due to altered level of consciousness. Admitted for evaluation and management of sepsis and DKA Severe sepsis 2/2 scrotal abscess No signs of shock at this time. BP has remained stable Meets sepsis criteria White count is 37 Lactic acid 3.7, 2.4 Started on aggressive IV hydration in ED Received Vancomycin and Rocephin in ED Will continue Vancomycin and start Cefazolin per Dr Araujo 07/28/25: Vitals are stable White count has downtrended to 14.9, with neutrophilic predominance of 81.6% Lactic acid has been downtrending Started on IV Vancomycin pharmacy to dose and IV ceftriaxone 1 g daily and IV metronidazole 500 mg b.i.d. Started culturulle 06756 units b.i.d. DKA Metabolic acidosis 2/2 above Uncontrolled diabetes mellitus Not a known diabetic A1C >12 BG >700 on admission ABG shows: Ph: 6.8, CO2: 12.1, HCO3: 2.4 Anion gap: 30 Started on insulin drip and IV fluids per DKA protocol Continue monitoring BMP 07/28/25: Glucose downtrending and 146 at at the time Anion gap has closed and currently 7 Bicarbonate is up trending, 19.6 at the time Lactic acid is normal -1.7 Potassium has dropped down to 2.4 Phosphate is low- 1.1 Plan: Held IV insulin Continue lactated ringer's at 150 ml/hr Continue dextrose/sodium chloride as glucose less than 200 Replace potassium as per protocol Monitor anion gap, potassium, and glucose levels Repeat potassium levels at 8:00 p.m.. 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 Patient was seen, examined and discussed with attending physician. Gera Alonso MD Internal Medicine resident, PGY-1 Date of Service: Jul 28, 2025 Billing Provider: VASILE CARMONA MD Common Visit Codes: [id number] INP/OBS CARE (HIGH) GERA ALONSO, RES Jul 28, 2025 14:43 VASILE CARMONA MD Jul 30, 2025 07:09
[2025-07-28] MEDS: COMMUNICATION ORDER 1 EA MISC MC ONE (15:59)
[2025-07-28 17:09] LABS: CREATININE 1.26 MG/DL (0.60-1.10); PHOSPHORUS 2.4 MG/DL (2.3-4.5); TOTAL CARBON DIOXIDE 22.8 MMOL/L (24-32); eCRCL 78 ML/MIN; eGFR 62 ML/MIN
[2025-07-28] MEDS ORDERED: sodium phosphate inj. 30 MMOL in dextrose 5%-water 250 ML IV PRN (17:30)
[2025-07-28] MEDS ORDERED: potassium Cl 40MEQ/270ML bag 270 ML IV PRN (17:30)
[2025-07-28] MEDS ORDERED: sodium phosphate inj. 15 MMOL in dextrose 5%-water 250 ML IV PRN (17:30)
[2025-07-28] MEDS ORDERED: magnesium sulf-water 2g/50mL 50 ML IV PRN (17:30)
[2025-07-28] MEDS ORDERED: ringers solution, lacted 1,000 ML IV SCH ×2 (17:30)
[2025-07-28] MEDS: ringers solution, lacted 1,000 ML IV SCH (18:15)
[2025-07-28 19:37] LABS: ABG BASE EXCESS -3.7 mmol/L (-2.0-3.0); ABG HCO3 17.9 mmol/L (21.0-28.0); ABG OXYGEN SATURATION 98.0 % (94.0-98.0); ABG PCO2 (T) 24.4 mmHg (35.0-48.0); ABG PH (T) 7.484 (7.350-7.450); ABG PO2 (T) 97.7 mmHg (83.0-108.0); ALLEN'S TEST Modified; FCOHb 0.6 % (0.5-1.5); FHHb 2.0 % (0.0-5.0); FIO2 21.0 mmHg/%; FMetHb 0.3 % (0.0-1.5); FO2Hb 97.1 % (94.0-98.0); MODE ROOM AIR; PATIENT TEMPERATURE 37.7; TOTAL HEMOGLOBIN 12.6 G/dl (13.5-17.5)
[2025-07-28 21:42] LABS: CREATININE 1.13 MG/DL (0.60-1.10); PHOSPHORUS 2.2 MG/DL (2.3-4.5); TOTAL CARBON DIOXIDE 19.8 MMOL/L (24-32); eCRCL 87 ML/MIN; eGFR 70 ML/MIN
[2025-07-28] MEDS: potassium Cl 40MEQ/1/2NS 520ml 520 ML IV PRN (22:13)
[2025-07-28] MEDS: lactobacillus rhamnosus 10,000 MMU CELLS/CAPSULE PO SCH (22:20)
[2025-07-28] MEDS: metroNIDAZOLE-Flagyl 500mg/NS 100 ML IV SCH (22:21)
[2025-07-28] MEDS: VANCOMYCIN 1.75GM/WATER FOR INJ (PEG) 350 ML IVPB IV ONE (23:28)
[2025-07-29] VITALS (8 sets, daily range): BP systolic 137–154; BP diastolic 92–101; PULSE 78–91; RESP 12–20; TEMP 97.1–98.8; O2SAT 98–99
[2025-07-29 02:15] LABS: CREATININE,URINE RANDOM 37.0 MG/DL; TOTAL PROTEIN,URINE RANDOM 20.3 MG/DL; UA UREA RANDOM 321.0 MG/DL
[2025-07-29] MEDS: potassium Cl 40MEQ/1/2NS 520ml 520 ML IV ONE (02:15)
[2025-07-29 02:17] LABS: MEAN PLATELET VOLUME 7.5 FL (7.4-10.4); RED CELL DISTRIBUTION WIDTH 12.9 % (11.5-14.5)
[2025-07-29 02:17] LABS: OSMOLALITY UA 436.0 MOSM/K (50-1400)
[2025-07-29 02:33] LABS: CREATININE 1.10 MG/DL (0.60-1.10); PHOSPHORUS 1.9 MG/DL (2.3-4.5); TOTAL CARBON DIOXIDE 15.1 MMOL/L (24-32); eCRCL 89 ML/MIN; eGFR 72 ML/MIN
[2025-07-29] MEDS: Insulin Reg/NS 100units/100mL 100 ML IV SCH (03:30)
[2025-07-29 03:37] LABS: BANDS% (MANUAL) 2.0 % (0-10); LYMPHOCYTES % (MANUAL) 14.0 % (21-51); METAMYLEOCYTES% (MANUAL) 1.0 % (0-0); MONOCYTES % (MANUAL) 10.0 % (2-12); NEUTROPHILS % (MANUAL) 73.0 % (42-75); PLATELET ESTIMATE NORMAL
[2025-07-29] MEDS: sodium phosphate inj. 15 MMOL in normal saline 250ml IV soln 250 ML IV ONE (04:39)
[2025-07-29 06:57] LABS: CREATININE 1.01 MG/DL (0.60-1.10); PHOSPHORUS 2.2 MG/DL (2.3-4.5); TOTAL CARBON DIOXIDE 18.8 MMOL/L (24-32); eCRCL 97 ML/MIN; eGFR 80 ML/MIN
[2025-07-29] MEDS: CefTRIAXone/D5W-Rocephin 1gm 50 ML IV SCH (07:10)
[2025-07-29] MEDS: VANCOmycin 1250MG/NS 250ml Bag 250 ML IV SCH (09:37)
[2025-07-29 12:25] LABS: CREATININE 0.95 MG/DL (0.60-1.10); PHOSPHORUS 1.7 MG/DL (2.3-4.5); TOTAL CARBON DIOXIDE 22.5 MMOL/L (24-32); eCRCL 103 ML/MIN; eGFR 85 ML/MIN
[2025-07-29] MEDS ORDERED: magnesium Cl slow-release 64mg tablet PO PRN (12:50)
[2025-07-29] MEDS: insulin glargine (Lantus) pen - multi-dose SQ ONE (14:16)
[2025-07-29 15:47] LABS: CREATININE 0.95 MG/DL (0.60-1.10); PHOSPHORUS 2.3 MG/DL (2.3-4.5); TOTAL CARBON DIOXIDE 24.1 MMOL/L (24-32); eCRCL 103 ML/MIN; eGFR 85 ML/MIN
[2025-07-29] MEDS: potassium Cl 20 mEq SR tablet PO PRN ×2 (15:59→23:52)
[2025-07-29] MEDS: ondansetron/PF 4mg/2ml inj IV PRN (16:06)
[2025-07-29] MEDS ORDERED: DEXTROSE 15 GM of carb/4 tabs (each vial/BOTTLE has 4 tablets) PO PRN ×2 (17:10)
[2025-07-29] MEDS ORDERED: glucagon, human recombinant 1mg kit SUBCUT PRN (17:10)
[2025-07-29] MEDS ORDERED: dextrose 50%-water 50ml dispensing syringe IV PRN ×2 (17:10)
[2025-07-29] MEDS ORDERED: vancomycin/NS 1 GM ADD-VANTAGE 250 ML IV SCH (18:00)
[2025-07-29] MEDS: INSULIN LISPRO 100 UNIT/ML INSULN.PEN MULTI-DOSE SQ SCH (18:49)
--- NOTE | 2025-07-29 18:55 | PROGRESS NOTE- Residence ---
Progress Note - Resident Providers to CC Resident Creating Document: GERA ALONSO RES ~ Antibiotic Timeout Antibiotic Ordered?: Yes Subjective Patient was seen and examined bedside, he is not in acute distress. He states that his pain in the right scrotal area has improved. He denied fever, chills, nausea, vomiting, abdominal pain. Objective Vital Signs Date Time Temp Pulse Resp B/P (MAP) Pulse Ox O2 Delivery O2 Flow Rate FiO2 07/29/25 15:08 98.4 78 16 153/101 (118) 99 Room Air 07/29/25 08:00 0.0 Result Diagram: 07/29/25 0209 07/29/25 1512 Awake , alert, and oriented x4, resting comfortably in the bed, in no acute distress HEENT: Atraumatic, normocephalic, EOMI, anicteric sclera ; pink conjunctiva Neck: Trachea midline. Supple, full range of motion, no JVD Cardiac: Regular rhythm, regular rate with no murmurs all over the precordium. Respiratory: Equal breath sounds bilaterally, no tachypnea, no wheezing ,rub or rales, Chest wall is symmetric and without deformity. Gastrointestinal: Abdomen symmetric, non-distended, soft, non-tender, normal bowel sounds x4 quadrant, normoactive, no hepatosplenomegaly Male genitalia: He has a 3 x 2 erythematous ulcer in the right side of his scrotal area. Mild discharge with pus observed. Musculoskeletal: No pedal edema, no cyanosis Neurological: Speech is clear, alert, and oriented x 4. No motor or sensory deficit, deep tendon reflexes normal, Cranial nerves II-XII intact. Skin: Warm and dry Psych: Normal affect Assessment Assessment Patient is a 45 y/o male with no past medical history who was brought to the ED by EMS due to altered level of consciousness. He was admitted for evaluation and management of sepsis and DKA. Plan Plan Severe sepsis 2/2 scrotal abscess No signs of shock at this time. BP has remained stable Meets sepsis criteria White count is 37 Lactic acid 3.7, 2.4 Started on aggressive IV hydration in ED Received Vancomycin and Rocephin in ED Will continue Vancomycin and start Cefazolin per Dr Araujo 07/28/25: Vitals are stable White count has downtrended to 14.9, with neutrophilic predominance of 81.6% Lactic acid has been downtrending Started on IV Vancomycin pharmacy to dose and IV ceftriaxone 1 g daily and IV metronidazole 500 mg b.i.d. Started culturulle 18598 units b.i.d. 07/29/25: Vitals are stable Blood pressure is on the higher side, probably due to fluids WBC has downtrended to 10.6 with neutrophilic predominance of 79.1% Lactic acid is normal 1.7 Wound culture shows strep agalactiae Discontinued IV vancomycin Continue IV ceftriaxone 1 g and IV metronidazole 500 mg DKA Metabolic acidosis 2/2 above Uncontrolled diabetes mellitus Not a known diabetic A1C >12 BG >700 on admission ABG shows: Ph: 6.8, CO2: 12.1, HCO3: 2.4 Anion gap: 30 Started on insulin drip and IV fluids per DKA protocol Continue monitoring BMP 07/28/25: Glucose downtrending and 146 at at the time Anion gap has closed and currently 7 Bicarbonate is up trending, 19.6 at the time Lactic acid is normal -1.7 Potassium has dropped down to 2.4 Phosphate is low- 1.1 Plan: Held IV insulin Continue lactated ringer's at 150 ml/hr Continue dextrose/sodium chloride as glucose less than 200 Replace potassium as per protocol Monitor anion gap, potassium, and glucose levels Repeat potassium levels at 8:00 p.m.. We will plan to resume insulin once hypokalemia resolves Follow up with ABG Will discuss diabetic management once DKA resolves 07/29/25: Glucose is downtrending and currently 149 Anion gap has closed pH is normal 7.4 Bicarbonate is normal 24.1 Lactic acid is normal Potassium is low 2.9 Plan: Discontinued insulin drip, he was given Lantus 20 units subQ Started Humalog medium dose protocol Started potassium protocol Monitor electrolytes and glucose Started patient on diabetic diet Continue Accu-Chek q.2h Renal: MILAN likely pre-renal and renal with indeterminate FeNa 2/2 vasomotor nephropathy and ATN Pseudohyponatremia 2/2 DKA As above 07/28/25: Creatinine has been downtrending, 1.29 at the time BUN/Cr is normal Continue fluids- LR @ 250 ml/hr 07/29/25: Creatinine is normal 0.95 Blood pressure is on the higher side Continue LR @ 150 mL/hr FeNa is 1.4% Follow up with Urine 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: Acute metabolic 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 2/[address] head is unremarkable Will continue monitoring Code Status: Full code DVT prophylaxis: Heparin Nutrition: Carb controlled diet Prognosis: Guarded Disposition: Continue medical management, we will discuss diabetic management with patient, PT eval and DC plan Resident attestation: The patient note has been reviewed and supervised by senior residentsPGY-3 Dr Weber Patient was seen, examined and discussed with attending physician Zachariah Alonso MD Internal Medicine resident, PGY-1 Date of Service: Jul 29, 2025 Billing Provider: VASILE CARMONA MD Common Visit Codes: [id number] INP/OBS CARE(HIGH) GERA ALONSO, RES Jul 29, 2025 18:55 FRANCO WEBER, RES Jul 29, 2025 20:04 VASILE CARMONA MD Jul 30, 2025 07:10
[2025-07-29] MEDS ORDERED: magnesium sulf-water 4G/100mL 100 ML IV PRN (23:40)
[2025-07-29] MEDS ORDERED: magnesium sulf-water 2g/50mL 50 ML IV PRN (23:40)
[2025-07-29] MEDS ORDERED: potassium Cl 40MEQ/1/2NS 520ml 520 ML IV PRN (23:40)
[2025-07-30] VITALS (8 sets, daily range): BP systolic 142–158; BP diastolic 100–104; PULSE 77–88; RESP 7–20; TEMP 97.1–98.4; O2SAT 97–99
[2025-07-30] MEDS: mag hydrox/Alum hydrox/simeth 30ml oral suspension PO PRN (04:14)
[2025-07-30] MEDS: INSULIN LISPRO 100 UNIT/ML INSULN.PEN MULTI-DOSE SQ ONE (05:20)
[2025-07-30 05:58] LABS: MEAN PLATELET VOLUME 7.7 FL (7.4-10.4); RED CELL DISTRIBUTION WIDTH 13.1 % (11.5-14.5)
[2025-07-30 06:35] LABS: CREATININE 0.92 MG/DL (0.60-1.10); TOTAL CARBON DIOXIDE 23.8 MMOL/L (24-32); eCRCL 107 ML/MIN; eGFR 89 ML/MIN
[2025-07-30] MEDS: insulin glargine (Lantus) pen - multi-dose SQ SCH (08:00)
[2025-07-30] MEDS: K and/or MAG REPLACEMENT MC SCH (08:00)
--- NOTE | 2025-07-30 15:37 | PROGRESS NOTE- Residence ---
Progress Note - Resident Providers to CC Resident Creating Document: HORTENCIA HANSEN RES ~ Antibiotic Timeout Antibiotic Ordered?: Yes Subjective Patient was seen and examined bedside, he continues to have discharge from an ulcer present on the inguinal and suprapubic region. He complains of pain on deep palpation of his suprapubic region revealing a hard underlying fluctuating mass. Objective Vital Signs Date Time Temp Pulse Resp B/P (MAP) Pulse Ox O2 Delivery O2 Flow Rate FiO2 07/30/25 07:56 77 07/30/25 02:00 97.3 16 154/100 (118) 99 Room Air 07/29/25 08:00 0.0 Result Diagram: 07/30/25 0537 07/30/25 0537 Awake , alert, and oriented x4, resting comfortably in the bed, in no acute distress HEENT: Atraumatic, normocephalic, EOMI, anicteric sclera ; pink conjunctiva Neck: Trachea midline. Supple, full range of motion, no JVD Cardiac: Regular rhythm, regular rate with no murmurs all over the precordium. Respiratory: Equal breath sounds bilaterally, no tachypnea, no wheezing ,rub or rales, Chest wall is symmetric and without deformity. Gastrointestinal: Abdomen symmetric, non-distended, soft, non-tender, normal bowel sounds x4 quadrant, normoactive, no hepatosplenomegaly Male genitalia: He has a 3 x 2 erythematous ulcer in the right side of his inguinal region. Pustular discharge noted A hot fluctuating mass palpated in the suprapubic region Musculoskeletal: No pedal edema, no cyanosis Neurological: Speech is clear, alert, and oriented x 4. No motor or sensory deficit, deep tendon reflexes normal, Cranial nerves II-XII intact. Skin: Warm and dry Advance Care Planning Advanced Care plannin - 30 Minutes Assessment Assessment Patient is a 45 y/o male with no past medical history who was brought to the ED by EMS due to altered level of consciousness. He was admitted for evaluation and management of sepsis and DKA. Plan Plan Severe sepsis 2/2 suprapubic abscess No signs of shock at this time. BP has remained stable Meets sepsis criteria White count is 37 Lactic acid 3.7, 2.4 Started on aggressive IV hydration in ED Received Vancomycin and Rocephin in ED Will continue Vancomycin and start Cefazolin per Dr Araujo 07/28/25: Vitals are stable White count has downtrended to 14.9, with neutrophilic predominance of 81.6% Lactic acid has been downtrending Started on IV Vancomycin pharmacy to dose and IV ceftriaxone 1 g daily and IV metronidazole 500 mg b.i.d. Started culturulle 40266 units b.i.d. 07/29/25: Vitals are stable Blood pressure is on the higher side, probably due to fluids WBC has downtrended to 10.6 with neutrophilic predominance of 79.1% Lactic acid is normal 1.7 Wound culture shows strep agalactiae Discontinued IV vancomycin Continue IV ceftriaxone 1 g and IV metronidazole 500 mg 07/30/2025: WBC normalized to 5.6 Continue IV ceftriaxone 1 g IV metronidazole 500 mg daily for positive wound culture with strep agalactiae-pansensitive Suprapubic tenderness with a small ulcer with pustular discharge noted, also palpation revealed a heard fluctuating mass Surgery, Dr. Johnson was consulted, I and D tomorrow in a.m. NPO after midnight DKA Metabolic acidosis 2/2 above Uncontrolled diabetes mellitus Not a known diabetic A1C >12 BG >700 on admission ABG shows: Ph: 6.8, CO2: 12.1, HCO3: 2.4 Anion gap: 30 Started on insulin drip and IV fluids per DKA protocol Continue monitoring BMP 07/28/25: Glucose downtrending and 146 at at the time Anion gap has closed and currently 7 Bicarbonate is up trending, 19.6 at the time Lactic acid is normal -1.7 Potassium has dropped down to 2.4 Phosphate is low- 1.1 Plan: Held IV insulin Continue lactated ringer's at 150 ml/hr Continue dextrose/sodium chloride as glucose less than 200 Replace potassium as per protocol Monitor anion gap, potassium, and glucose levels Repeat potassium levels at 8:00 p.m.. We will plan to resume insulin once hypokalemia resolves Follow up with ABG Will discuss diabetic management once DKA resolves 07/29/25: Glucose is downtrending and currently 149 Anion gap has closed pH is normal 7.4 Bicarbonate is normal 24.1 Lactic acid is normal Potassium is low 2.9 Plan: Discontinued insulin drip, he was given Lantus 20 units subQ Started Humalog medium dose protocol Started potassium protocol Monitor electrolytes and glucose Started patient on diabetic diet Continue Accu-Chek q.2h 07/30/2025: DKA resolved Patient was initially on Lantus 20 units SQ HS and Humalog medium dose protocol Blood sugars at 231 today fluctuating between 300-200, hence increase Lantus to 25 units SQ Continue potassium replacement protocol and monitor electrolytes daily Carb controlled diet to be continued Discontinue Accu-Chek q.2h today MILAN likely pre-renal and renal with indeterminate FeNa 2/2 vasomotor nephropathy and ATN Pseudohyponatremia 2/2 DKA As above 07/28/25: Creatinine has been downtrending, 1.29 at the time BUN/Cr is normal Continue fluids- LR @ 250 ml/hr 07/29/25: Creatinine is normal 0.95 Blood pressure is on the higher side Continue LR @ 150 mL/hr FeNa is 1.4% Follow up with Urine Eosinophil 07/30/2025: MILAN resolved Acute metabolic 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 2/2 above: Resolved CT head is unremarkable Will continue monitoring Code Status: Full code DVT prophylaxis: Heparin rescue Nutrition: Carb controlled diet Prognosis: Guarded Disposition: Continue medical management, I and D tomorrow in hilda Hansen MD Internal Medicine Resident, PGY-2 Date of Service: Jul 30, 2025 Billing Provider: VASILE CARMONA MD Common Visit Codes: [id number] INP/OBS CARE(HIGH) HORTENCIA HANSEN, RES Jul 30, 2025 15:37 VASILE CARMONA MD Jul 31, 2025 08:12
[2025-07-30] MEDS ORDERED: VANCOMYCIN LEVEL IV ONE (17:30)
--- NOTE | 2025-07-30 17:37 | PROGRESS NOTE ---
Progress Note ID Providers to CC ~ Progress Note Progress Note: pt seen-needs debridement right thigh wound ELEONORA ARROYO MD Jul 30, 2025 17:37
[2025-07-31] VITALS (25 sets, daily range): BP systolic 134–146; BP diastolic 56–101; PULSE 68–97; RESP 9–19; TEMP 97.1–99; O2SAT 94–99
[2025-07-31 06:41] LABS: MEAN PLATELET VOLUME 8.6 FL (7.4-10.4); RED CELL DISTRIBUTION WIDTH 12.8 % (11.5-14.5)
[2025-07-31 06:52] LABS: INR 1.1 INR
[2025-07-31 07:37] LABS: CREATININE 0.91 MG/DL (0.60-1.10); TOTAL CARBON DIOXIDE 24.3 MMOL/L (24-32); eCRCL 108 ML/MIN; eGFR 90 ML/MIN
--- NOTE | 2025-07-31 07:48 | RADIOLOGY REPORT ---
CHEST RADIOGRAPH Indication: pre-op, surgey scheduled fpr 9AM , pain Technique: Single frontal view of the chest was obtained Comparison: DI CHEST,SINGLE VIEW on DOS: 07/27/25 FINDINGS: Lines and Tubes: None Lungs: No focal consolidation. Pleura: No effusion. No pneumothorax. Cardiomediastinal contours: Unremarkable Bones: No acute osseous abnormality. IMPRESSION: No acute cardiopulmonary disease.
[2025-07-31] MEDS: insulin glargine (Lantus) pen - multi-dose SQ SCH (07:59)
--- NOTE | 2025-07-31 09:56 | PROGRESS NOTE ---
Progress Note ID Providers to CC ~ Progress Note Progress Note: discussed procedure including risks/benefits/alternatives ELEONORA ARROYO MD Jul 31, 2025 09:56
--- NOTE | 2025-07-31 11:11 | ELECTROCARDIOGRAPH REPORT ---
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 MIKE Yung Measurements Intervals [place] Rate: 73 P: 14 NV: 174 QRS: 5 QRSD: 111 T: 7 QT: 400 QTc: 441 Interpretive Statements Sinus rhythm Electronically Signed On 07-31-2025 19:24:[address] MIKE Yung Please click the below link to view image of tracing.
[2025-07-31] MEDS ORDERED: Insulin regular, human (NovoLIN R) inj ONE (11:48)
[2025-07-31] MEDS ORDERED: labetalol 20mg/4ml (5mg/ml) syringe IV PRN (11:50)
[2025-07-31] MEDS ORDERED: meperidine/PF 25mg/ml syringe IV PRN ×3 (11:50)
[2025-07-31] MEDS: ringers solution, lacted 1,000 ML IV SCH (11:50)
[2025-07-31] MEDS ORDERED: ondansetron/PF 4mg/2ml inj IV PRN ×2 (11:50→12:45)
[2025-07-31] MEDS ORDERED: morphine 4 MG/ML inj SYRINge IV PRN (11:50)
[2025-07-31] MEDS ORDERED: enalaprilat 1.25mg/ml 2ml vial IV PRN (11:50)
[2025-07-31] MEDS: insulin regular, human 10 units/0.1 ml syringe SQ STA (11:51)
[2025-07-31] MEDS ORDERED: midazolam 1 mg/ML 2ml injection ONE (12:05)
[2025-07-31] MEDS ORDERED: fentaNYL /PF 50mcg/ml 5ml ampule ONE (12:06)
[2025-07-31] MEDS ORDERED: BUPIVAcaine 2.5mg/ml inj 50ml vial (contains preservative) ONE (12:09)
[2025-07-31] MEDS ORDERED: LIDOcaine 2% (20mg/ml) 5ml vial ONE (12:12)
[2025-07-31] MEDS ORDERED: propofol inj 20 ML IV ONE (12:12)
[2025-07-31] MEDS ORDERED: dexamethasone sod phosphate 4mg/ml inj. ONE (12:13)
[2025-07-31] MEDS ORDERED: ondansetron/PF 4mg/2ml inj ONE (12:15)
--- NOTE | 2025-07-31 12:39 | OPERATIVE REPORT ---
Operative Report Providers to CC ~ Date of Procedure: Jul 31, 2025 Pre-Operative Diagnosis: right groin soft tissue infection Post-Operative Diagnosis SAME as PRE-Op Procedure Performed excisional debridement right groin wound Surgeon: iris Tailor Garment Fitter none Anesthesiologist: Romero Mcbride Type of Anesthesia: General Findings: extensive tunnelling into groin Estimated Blood Loss: min Specimen Removed: none ELEONORA ARROYO MD Jul 31, 2025 12:39
[2025-07-31] MEDS ORDERED: HYDROmorphone inj. 0.5 MG/0.5 ML DISP.SYRIN IV PRN (12:45)
[2025-07-31] MEDS: morphine 4 MG/ML inj SYRINge IV PRN (12:45)
[2025-07-31] MEDS ORDERED: HYDROcodone/acetaminophen 10/325mg tab PO PRN (12:45)
--- NOTE | 2025-07-31 16:55 | PROGRESS NOTE- Residence ---
Progress Note - Resident Providers to CC Resident Creating Document: HORTENCIA HANSEN RES ~ Antibiotic Timeout Antibiotic Ordered?: Yes Subjective Patient was seen and examined bedside, patient underwent excisional debridement right groin wound by Dr. Lopez today. Postoperative course was uneventful without any major complications. We will transition to p.o. antibiotics tomorrow. Objective Vital Signs Date Time Temp Pulse Resp B/P (MAP) Pulse Ox O2 Delivery O2 Flow Rate FiO2 07/31/25 14:00 72 11 135/95 (108) 96 Room Air 07/31/25 12:38 97.7 6.0 Result Diagram: 07/31/25 0556 07/31/25 0556 Awake , alert, and oriented x4, resting comfortably in the bed, in no acute distress HEENT: Atraumatic, normocephalic, EOMI, anicteric sclera ; pink conjunctiva Neck: Trachea midline. Supple, full range of motion, no JVD Cardiac: Regular rhythm, regular rate with no murmurs all over the precordium. Respiratory: Equal breath sounds bilaterally, no tachypnea, no wheezing ,rub or rales, Chest wall is symmetric and without deformity. Gastrointestinal: Abdomen symmetric, non-distended, soft, non-tender, normal bowel sounds x4 quadrant, normoactive, no hepatosplenomegaly Male genitalia: Right groin: Dressing in place, with no active discharge and erythema. Musculoskeletal: No pedal edema, no cyanosis Neurological: Speech is clear, alert, and oriented x 4. No motor or sensory deficit, deep tendon reflexes normal, Cranial nerves II-XII intact. Skin: Warm and dry Coagulation Studies Laboratory Tests Test 07/31/25 05:56 Prothrombin Time 10.8 SECONDS (9.0-12.0) INR International Normalized Ratio 1.1 INR Coagulation Comments Advance Care Planning Advanced Care plannin - 30 Minutes Assessment Assessment Patient is a 45 y/o male with no past medical history who was brought to the ED by EMS due to altered level of consciousness. He was admitted for evaluation and management of sepsis and DKA. Plan Plan Right groin soft tissue infection Status post excisional debridement right groin wound No signs of shock at this time. BP has remained stable Meets sepsis criteria White count is 37 Lactic acid 3.7, 2.4 Started on aggressive IV hydration in ED Received Vancomycin and Rocephin in ED Will continue Vancomycin and start Cefazolin per Dr Araujo 07/28/25: Vitals are stable White count has downtrended to 14.9, with neutrophilic predominance of 81.6% Lactic acid has been downtrending Started on IV Vancomycin pharmacy to dose and IV ceftriaxone 1 g daily and IV metronidazole 500 mg b.i.d. Started culturulle 76008 units b.i.d. 07/29/25: Vitals are stable Blood pressure is on the higher side, probably due to fluids WBC has downtrended to 10.6 with neutrophilic predominance of 79.1% Lactic acid is normal 1.7 Wound culture shows strep agalactiae Discontinued IV vancomycin Continue IV ceftriaxone 1 g and IV metronidazole 500 mg 07/30/2025: WBC normalized to 5.6 Continue IV ceftriaxone 1 g IV, metronidazole p.o. 500 mg daily for positive wound culture with strep agalactiae-pansensitive Suprapubic tenderness with a small ulcer with pustular discharge noted, also palpation revealed a heard fluctuating mass Surgery, Dr. Johnson was consulted, I and D tomorrow in a.m. NPO after midnight 07/31/2025: WBC count 5.5 Continue antibiotics as above for now We will transition to p.o. antibiotics tomorrow Patient underwent excisional debridement right groin wound by Dr. Lopez today Postoperative day 1, uneventful with no postoperative complications DKA Metabolic acidosis 2/2 above Uncontrolled diabetes mellitus Not a known diabetic A1C >12 BG >700 on admission ABG shows: Ph: 6.8, CO2: 12.1, HCO3: 2.4 Anion gap: 30 Started on insulin drip and IV fluids per DKA protocol Continue monitoring BMP 07/28/25: Glucose downtrending and 146 at at the time Anion gap has closed and currently 7 Bicarbonate is up trending, 19.6 at the time Lactic acid is normal -1.7 Potassium has dropped down to 2.4 Phosphate is low- 1.1 Plan: Held IV insulin Continue lactated ringer's at 150 ml/hr Continue dextrose/sodium chloride as glucose less than 200 Replace potassium as per protocol Monitor anion gap, potassium, and glucose levels Repeat potassium levels at 8:00 p.m.. We will plan to resume insulin once hypokalemia resolves Follow up with ABG Will discuss diabetic management once DKA resolves 07/29/25: Glucose is downtrending and currently 149 Anion gap has closed pH is normal 7.4 Bicarbonate is normal 24.1 Lactic acid is normal Potassium is low 2.9 Plan: Discontinued insulin drip, he was given Lantus 20 units subQ Started Humalog medium dose protocol Started potassium protocol Monitor electrolytes and glucose Started patient on diabetic diet Continue Accu-Chek q.2h 07/30/2025: DKA resolved Patient was initially on Lantus 20 units SQ HS and Humalog medium dose protocol Blood sugars at 231 today fluctuating between 300-200, hence increase Lantus to 25 units SQ Continue potassium replacement protocol and monitor electrolytes daily Carb controlled diet to be continued Discontinue Accu-Chek q.2h today 07/31/2025: Blood sugar levels between 200-250, continue Lantus 25 units SQ HS, initiated Humalog 8 units before meals Potassium was at 3 today, continue replacement per protocol Continue carb controlled diet MILAN likely pre-renal and renal with indeterminate FeNa 2/2 vasomotor nephropathy and ATN Pseudohyponatremia 2/2 DKA As above 07/28/25: Creatinine has been downtrending, 1.29 at the time BUN/Cr is normal Continue fluids- LR @ 250 ml/hr 07/29/25: Creatinine is normal 0.95 Blood pressure is on the higher side Continue LR @ 150 mL/hr FeNa is 1.4% Follow up with Urine Eosinophil 07/30/2025: MILAN resolved Acute metabolic 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 2/2 above: Resolved CT head is unremarkable Will continue monitoring Code Status: Full code DVT prophylaxis: Heparin rescue Nutrition: Carb controlled diet Prognosis: Guarded Disposition: Anticipated discharge tomorrow Hortencia Hansen MD Internal Medicine Resident, PGY-2 Date of Service: Jul 31, 2025 Billing Provider: VASILE CARMONA MD Common Visit Codes: [id number] INP/OBS CARE(HIGH) HORTENCIA HANSEN, RES Jul 31, 2025 16:55 VASILE CARMONA MD Jul 31, 2025 20:58
[2025-07-31] MEDS: lactose-reduced food (Ensure Enlive) - 237ml bottle PO SCH (18:00)
--- NOTE | 2025-07-31 19:44 | CONSULTATION ---
DATE OF CONSULTATION: 07/30/2025 DICTATING PHYSICIAN: Elmer Villafuerte MD REASON FOR CONSULTATION: Evaluation of right groin wound. 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 Ultimately admitted to the ICU. Medical management pursued. The patient was treated with medical management, transferred to the floor. Surgical evaluation is now requested regarding a right groin wound. The patient with some drainage from the wound. No fever or chills. Minimal pain. Previous episodes of similar type wounds. Groin wound revealed strep and yeast. PAST MEDICAL HISTORY: Notable for recently diagnosed diabetes. PAST SURGICAL HISTORY: Unremarkable. CURRENT MEDICATIONS: Include ceftriaxone, Flagyl, famotidine, insulin. Provided p.r.n. medications. ALLERGIES: None. SOCIAL HISTORY: Denies tobacco use. REVIEW OF SYSTEMS: See H and P. PHYSICAL EXAMINATION: GENERAL: ____ well-nourished male, in no distress. VITAL SIGNS: Unremarkable. HEART: Regular rate and rhythm. LUNGS: Clear to auscultation. SKIN: Groin shows a 1 cm open wound in the right groin with some induration. LABORATORY DATA: Labs include ____, hematocrit of 35, platelet count is 178. Chemistries included a BUN and creatinine of 8 and 0.9, CO2 is 24. IMAGING STUDIES: CT of the pelvis revealed some induration in the right groin, but no akshat abscess. IMPRESSION: * Soft tissue infection in the right groin. * Recently diagnosed diabetes. RECOMMENDATIONS: * Wound debridement. * Continue antibiotics. Elmer Villafuerte MD TID: [id number] RECEIPT: [id number] KB/AMA
[2025-08-01 02:00] VITALS: BP 122/88; PULSE 80; RESP 16; TEMP 98.6; O2SAT 98
--- NOTE | 2025-08-01 03:52 | OPERATIVE REPORT ---
DATE OF SURGERY: 07/31/2025 DICTATING PHYSICIAN: Elmer Villafuerte MD PREOPERATIVE DIAGNOSIS: Soft tissue infection, right groin. POSTOPERATIVE DIAGNOSIS: Soft tissue infection, right groin. PROCEDURE PERFORMED: Excisional debridement, right groin soft tissue infection. SURGEON: Elmer Villafuerte MD FORENSIC ARTIST: None. ANESTHESIA: General/Dr. Mcbride. DRAINS: None. INDICATIONS FOR OPERATION: A 45-year-old male who was admitted with DKA and groin infection. CAT scan demonstrated inflammatory changes in the right groin with an open wound. The patient was seen in surgery for debridement and exploration. INTRAOPERATIVE FINDINGS: The patient had a 3-cm opening in the right groin. There was extensive tunneling into the groin extending at least 4 cm. There was some necrotic tissue present in the wound. DESCRIPTION OF PROCEDURE: The patient was placed supine on the operating table. After induction of general anesthesia and placement of , right groin was prepped and draped. After a timeout was performed, the wound was then explored. A curette was used for excisional debridement. A large amount of debris was removed from the wound. Wounds were irrigated with antibiotic-containing solution. When hemostasis was found to be adequate, the wounds to be clean. The wound was packed with a quarter length gauze. Dressing was applied. The patient was transferred to recovery room in stable condition. Elmer Villafuerte MD TID: [id number] RECEIPT: [id number]
[2025-08-01 05:15] LABS: MEAN PLATELET VOLUME 8.4 FL (7.4-10.4); RED CELL DISTRIBUTION WIDTH 12.8 % (11.5-14.5)
[2025-08-01 05:51] LABS: CREATININE 1.01 MG/DL (0.60-1.10); TOTAL CARBON DIOXIDE 28.4 MMOL/L (24-32); eCRCL 97 ML/MIN; eGFR 80 ML/MIN
[2025-08-01 06:00] VITALS: BP 129/90; PULSE 70; RESP 18; TEMP 97.3; O2SAT 97
[2025-08-01 08:22] VITALS: BP_SYST 129; PULSE 70
[2025-08-01] MEDS ORDERED: FAMO20TA8 PO (11:51)
[2025-08-01] MEDS ORDERED: AMOX-117 PO (11:51)
[2025-08-01] MEDS ORDERED: LANTUS SQ (11:51)
[2025-08-01] MEDS ORDERED: LISI10TA27 PO (11:51)
[2025-08-01] MEDS ORDERED: LACT1CAP26 PO (11:51)
--- NOTE | 2025-08-01 12:05 | DISCHARGE SUMMARY-Residence ---
Discharge Summary Providers to CC Resident Creating Document: QUINCYMERIGUDELIA BOSS ~ Discharge Summary Admission Diagnosis: right groin soft tissue infection Hospital Course DATE OF ADMISSION: 07/27/25 DATE OF DISCHARGE: 08/01/25 Discharge Diagnosis\Comment: Right groin soft tissue infection, Status post excisional debridement right groin wound DKA Metabolic acidosis 2/2 above Uncontrolled diabetes mellitus MILAN likely pre-renal and renal with indeterminate FeNa 2/2 vasomotor nephropathy and ATN Pseudohyponatremia 2/2 DKA Acute metabolic 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 2/2 above Operations\Procedures: Excisional debridement of right groin wound by Dr. Villafuerte Consultants: Dr. Villafuerte, surgeon Complications: None Condition on DC: Stable New Medications: Amox Tr/Potassium Clavulanate (Augmentin 875-125 Tablet) 1 Each Tablet 1 TAB PO Q12H for 14 Days, #28 TAB Insulin Glargine,Hum.rec.anlog* (Lantus*) 100 Unit/1 Ml Vial 25 UNITS SQ HS for 30 Days, #3 VIAL Famotidine (Famotidine) 20 Mg Tablet 20 MG PO BID for 14 Days, #28 TAB Lactobacillus Rhamnosus (Culturelle) 10 Billion Cell Capsule 77258 MMU PO DAILY for 14 Days, #14 CAP Lisinopril (Lisinopril) 10 Mg Tablet 10 MG PO DAILY for 30 Days, #30 TAB Discontinued Medications: Sulfamethoxazole/Trimethoprim (Septra Ds Tab) 800 Mg/160 Mg Tablet 1 TAB PO BID for ABSCESS PT HAD 3 DOSES PRIOR TO HOSPITAL Discharge Summary: HPI as per admitting physician: Patient is a 45 y/o male with no past medical history who was brought to the ED by EMS due to altered level of consciousness. Per , patient initially presented with a lesion in his right scrotal area last Thursday which she described as a ingrown hair, she reports that in the following days, the lesion increased in size and became red and tender. She believes that patient drained it himself. By Thursday, the lesion had ulcerated and had significant purulent discharge, and patient also started reporting some difficulty breathing. On Thursday of this week, patient was seen by a Telemedicine physician who prescribed oral Bactrim. She reports that symptoms did not improved and this morning she found him significantly confused and drowsy, reason why she decided to call 911. In ED patient was found to have a significantly elevated white count as well as blood glucose >600 as well as other electrolyte abnormalities consistent with DKA, reason why ICU was consulted. Hospital course: Patient was brought to the ED with altered loss of consciousness. His vitals were unstable with high pulse and blood pressures. His WBC was elevated with neutrophilic predominance. His procalcitonin was 1.43 and lactic acid was 3.7. His blood glucose was 722, HbA1C was 12. He is not a known diabetic. He has no PCP. His anion gap was elevated 30 and his ABG pH was 6.9. He was started on LR, insulin drip, and IV vancomycin and cefazolin for sepsis and DKA in ICU. He had MILAN likely prerenal due to vasomotor nephropathy and acute metabolic encephalopathy due to DKA and sepsis. His white count downtrended and DKA also started subsiding when he was shifted to PCU. He was continued on IV antibiotics, fluids and insulin drip. His potassium dropped to 2.4, and insulin drip was stopped, and potassium replacement protocol was initiated. After the potassium normalized, insulin drip was restarted. His anion gap closed and his glucose downtrended to 200s when we stopped the insulin drip and started him on Lantus 20 units. His scrotal wound culture came back positive for strep agalactiae and yeast and we continued him on IV Zosyn and vancomycin according to the sensitivity report. His blood culture showed no growth. His glucose was fluctuating between 200s and 300s so we increased his Lantus to 25 units and started Humalog 8 units before meals after he started eating. He underwent debridement of scrotal wound by Dr. Villafuerte and was cleared with no signs of infection post debridement. His glucose was in the 200s and he was discharged with Lantus 25 units and p.o. antibiotics Augmentin. Patient was encouraged to monitor his blood glucose levels and discuss with the PCP about his diabetes management and get referral to an child support specialist. He was advocated on diet and lifestyle modifications. Patient did not experience further complications throughout the entire hospital stay. Patient was seen and examined on the day of discharge. All labs, diagnostic workups, discharge plan discussed with the patient in detail during visit before discharge. All questions and concerns answered to the best of my professional knowledge. Imaging: Chest X ray-07/27/[address] No acute disease. Head CT-07/27/25 No evidence of acute intracranial abnormality. Chest/ abdomen/ pelvis CT- 07/27/25 No acute intrathoracic or intraabdominal abnormality. Right scrotal skin thickening and edema extending into perineum could be cellulitis. No subcutaneous emphysema seen to suggest for gangrene. Chest X ray-07/31/25 No acute cardiopulmonary disease. Vital Signs Date Time Temp Pulse Resp B/P (MAP) Pulse Ox O2 Delivery O2 Flow Rate FiO2 08/01/25 08:22 70 08/01/25 08:00 Room Air 08/01/25 06:00 97.3 18 129/90 (103) 97 07/31/25 12:38 6.0 Laboratory Tests Test 07/30/25 21:14 07/31/25 05:18 07/31/25 05:56 07/31/25 07:25 Glucometer 220 mg/dl 253 mg/dl 241 mg/dl White Blood Count 5.5 X10'3 Red Blood Count 3.97 X10'6 Hemoglobin 12.5 g/dl Hematocrit 35.6 % Mean Corpuscular Volume 89.7 FL Mean Corpuscular Hemoglobin 31.5 PG Mean Corpuscular Hemoglobin Concent 35.1 g/dL Red Cell Distribution Width 12.8 % Platelet Count 178 X10'3 Mean Platelet Volume 8.6 FL Neutrophils (%) (Auto) 61.5 % Lymphocytes (%) (Auto) 23.8 % Monocytes (%) (Auto) 13.3 % Eosinophils (%) (Auto) 0.7 % Basophils (%) (Auto) 0.7 % Neutrophils # (Auto) 3.4 X10'3 Lymphocytes # (Auto) 1.3 X10'3 Monocytes # (Auto) 0.7 X10'3 Eosinophils # (Auto) 0.0 X10'3 Basophils # (Auto) 0.0 X10'3 CBC Comment Prothrombin Time 10.8 SECONDS INR International Normalized Ratio 1.1 INR Coagulation Comments Sodium Level 136 MMOL/L Potassium Level 3.0 MMOL/L Chloride Level 100 MMOL/L Carbon Dioxide Level 24.3 MMOL/L Anion Gap 12 Blood Urea Nitrogen 8 MG/DL Creatinine 0.91 MG/DL Estimated GFR/1.73 m2 90 ML/MIN BUN/Creatinine Ratio 8.8 Glucose Level 264 MG/DL Calcium Level 8.4 MG/DL Magnesium Level 1.8 MG/DL Total Bilirubin 0.7 MG/DL Aspartate Amino Transf (AST/SGOT) 17 U/L Alanine Aminotransferase (ALT/SGPT) 14 U/L Alkaline Phosphatase 86 IU/L Total Protein 5.5 G/DL Albumin 2.2 G/DL Globulin 3.3 G/DL Albumin/Globulin Ratio 0.7 Chemistry Comments Test 07/31/25 10:58 07/31/25 13:09 07/31/25 17:03 07/31/25 20:05 Glucometer 276 mg/dl 204 mg/dl 284 mg/dl 301 mg/dl Test 07/31/25 22:45 08/01/25 04:49 08/01/25 07:21 08/01/25 12:42 Potassium Level 4.2 MMOL/L 4.1 MMOL/L White Blood Count 8.8 X10'3 Red Blood Count 3.92 X10'6 Hemoglobin 12.3 g/dl Hematocrit 35.4 % Mean Corpuscular Volume 90.2 FL Mean Corpuscular Hemoglobin 31.4 PG Mean Corpuscular Hemoglobin Concent 34.8 g/dL Red Cell Distribution Width 12.8 % Platelet Count 225 X10'3 Mean Platelet Volume 8.4 FL Neutrophils (%) (Auto) 63.2 % Lymphocytes (%) (Auto) 23.6 % Monocytes (%) (Auto) 11.6 % Eosinophils (%) (Auto) 0.6 % Basophils (%) (Auto) 1.0 % Neutrophils # (Auto) 5.6 X10'3 Lymphocytes # (Auto) 2.1 X10'3 Monocytes # (Auto) 1.0 X10'3 Eosinophils # (Auto) 0.1 X10'3 Basophils # (Auto) 0.1 X10'3 CBC Comment Sodium Level 135 MMOL/L Chloride Level 98 MMOL/L Carbon Dioxide Level 28.4 MMOL/L Anion Gap 9 Blood Urea Nitrogen 14 MG/DL Creatinine 1.01 MG/DL Estimated GFR/1.73 m2 80 ML/MIN BUN/Creatinine Ratio 13.9 Glucose Level 282 MG/DL Calcium Level 8.7 MG/DL Magnesium Level 2.1 MG/DL Total Bilirubin 0.5 MG/DL Aspartate Amino Transf (AST/SGOT) 16 U/L Alanine Aminotransferase (ALT/SGPT) 13 U/L Alkaline Phosphatase 86 IU/L Total Protein 5.5 G/DL Albumin 2.3 G/DL Globulin 3.2 G/DL Albumin/Globulin Ratio 0.7 Chemistry Comments Glucometer 285 mg/dl 401 mg/dl General examination: Awake , alert, and oriented x4, resting comfortably in the bed, in no acute distress HEENT: Atraumatic, normocephalic, EOMI, anicteric sclera ; pink conjunctiva Neck: Trachea midline. Supple, full range of motion, no JVD Cardiac: Regular rhythm, regular rate with no murmurs all over the precordium. Respiratory: Equal breath sounds bilaterally, no tachypnea, no wheezing ,rub or rales, Chest wall is symmetric and without deformity. Gastrointestinal: Abdomen symmetric, non-distended, soft, non-tender, normal bowel sounds x4 quadrant, normoactive, no hepatosplenomegaly Male genitalia: Right groin: Dressing in place, with no active discharge and erythema. Musculoskeletal: No pedal edema, no cyanosis Neurological: Speech is clear, alert, and oriented x 4. No motor or sensory deficit, deep tendon reflexes normal, Cranial nerves II-XII intact. Skin: Warm and dry Advice at discharge: PLEASE FOLLOW UP WITH [facility] ON 08/04/25 AT 8:00AM. [address] [place] [address]. PH: [phone] Follow up with PCP in 1 week. Contact [facility] for an appointment Monitor glucose levels with Glucometer at home, maintain a diary and monitor Blood pressure and discuss with PCP about adjustment of lantus dose and refill o f lantus vials and possible initiation of Humalog according to sugar control and get referral to child support specialist for diabetes management. Recommended carb control diet Please continue wound care at home. Call 911 or go to ER if any further episodes of nausea, vomiting, abdominal pain, altered consciousness, syncope. *Problems/Diagnosis: (1) Soft tissue infection Total Time Spent on D/C: > 30 Minutes Date of Service: Aug 01, 2025 Billing Provider: VASILE CARMONA MD Common Visit Codes: [id number] DISCH DAY >30min GERA ALONSO, GUDELIA Aug 01, 2025 12:05 VASILE CARMONA MD Aug 02, 2025 06:26
--- NOTE | 2025-08-01 19:54 | PROGRESS NOTE ---
Progress Note ID Providers to CC ~ Progress Note Progress Note: doing well/ok to dc ELEONORA ARROYO MD Aug 01, 2025 19:54
== END 2025-08-01 14:17 | disposition home health service (06) | DRG 853 ==
LOC: ER 07:33 → ED HOLD 12:05 → CICU 2S 15:00 → PCU 3S 07-28 17:43
PROVIDERS: ADMIT Internal Medicine Critical Care Medicine; ATTEND Internal Medicine Critical Care Medicine
PROC: BW251ZZ Computerized Tomography (CT Scan) of Chest, Abdomen and Pelvis using Low Osmolar Contrast (ICD-10-PCS; 2025-07-27)
PROC: 05HD33Z Insertion of Infusion Device into Right Cephalic Vein, Percutaneous Approach (ICD-10-PCS; 2025-07-27)
PROC: B54MZZA Ultrasonography of Right Upper Extremity Veins, Guidance (ICD-10-PCS; 2025-07-27)
PROC: 0JBC0ZZ Excision of Pelvic Region Subcutaneous Tissue and Fascia, Open Approach (ICD-10-PCS; principal; 2025-07-31 11:55)
DX: A41.9 Sepsis, unspecified organism (principal); E11.10 Type 2 diabetes mellitus with ketoacidosis without coma; G93.41 Metabolic encephalopathy; N17.0 Acute kidney failure with tubular necrosis; L03.314 Cellulitis of groin; N17.9 Acute kidney failure, unspecified; Z20.822 Contact with and (suspected) exposure to COVID-19; R65.20 Severe sepsis without septic shock; N49.2 Inflammatory disorders of scrotum
CPT/HCPCS: 96372; 99291; 99292; Z7506; 36410; 36415; 36600; 70450; 71045; 71260; 74177; 76937; 80053; 80202; 80305; 80320; 81001; 82570; 82803; 82948; 83036; 83605; 83735; 83930; 83935; 84100; 84132; 84133; 84145; 84156; 84300; 84484; 84540; 85007; 85018; 85025; 85610; 85651; 86140; 87040; 87070; 87077; 87088; 87186; 93005; A4618; A5200; A6213; A6253; A6266; A6407; A6449; A7000; C1751; C1758; G0378; J0690; J0696; J1100; J1644; J1815; J2003; J2250; J2270; J2405; J2543; J2704; J3010; J3374; J3375; J3480; J3490; J7030; J7040; J7050; J7060; J7120; J7121; Q9967